=== PATIENT | male | born 1945 | race Caucasian/White ===

== ENCOUNTER → 2018-07-17 | Emergency (ER) | payer MEDICARE ==
[~2018-07-17] MED LIST: Sodium Chloride 0.9% 100 ML ONE; Thiamine HCl 200 MG/2 ML VIAL ONE; cefTRIAXone\\ROCEPHIN 2 GM VIAL ONE
[2018-07-17 19:13] LABS: #Basophils 0.1 thou/uL (0.0-0.2); #Eosinphils 0.1 thou/uL (0.0-0.7); #Lymphocytes 2.4 thou/uL (1.20-3.40); #Monocytes 0.5 thou/uL (0.11-0.59); #Neutrophils 2.5 thou/uL (1.40-6.50); %Basophils 0.9 % (0.0-1.0); %Eosinophils 1.8 % (0.0-10.0); %Lymphocytes 43.4 % (21.0-51.0); %Monocytes 8.8 % (0.0-10.0); Hemoglobin 14.9 g/dL (14.0-18.0); Mean Corpuscular HGB CONC 31.5 g/dL (32.0-36.0); Mean Corpuscular Hemoglobin 31.2 pg (27.0-31.0); Mean Corpuscular Volume 99.1 fL (78.0-98.0); Mean Platelet Volume 6.4 fL (7.4-10.4); Platelet Count 199 thou/uL (130-400); RBC Distribution Width 12.2 % (11.5-14.5); Red Blood Cell (RBC) Count 4.78 mill/uL (4.70-6.10); White Blood Cell (WBC) Count 5.5 thou/uL (4.8-10.8)
--- NOTE | 2018-07-17 19:15 | CT ---
CT OF THE BRAIN WITHOUT CONTRAST: 07/17/[address] was done emergently for evaluation of mental status changes. Comparison is made with a 06/22/12 study. There has been no significant interval change. The ventricles are normal in size with no shift. No in tracranial bleeding, mass, edema, or stroke was found. A minimal low density focus in the right front al lobe and right parietal lobe were present before and are completely unchanged. The calvarium appea rs normal. The visible paranasal sinuses and mastoid air cells are clear. IMPRESSION: No acute intracranial findings. Exam unchanged from 2013. POS: HOME
[2018-07-17 19:23] LABS: ALT (SGPT) 11 U/L (8-55); AST (SGOT) 14 U/L (5-34); Albumin 3.8 g/dL (3.4-4.8); Alcohol 173 mg/dL (Less than 10); Alkaline Phosphatase 69 U/L (40-150); Anion Gap 17 mmol/L (10-20); BUN (Urea Nitrogen) 14 mg/dL (8.4-25.7); Bilirubin, Total 0.3 mg/dL (0.2-1.2); Calc. Creatinine Clearance 0 mL/min (70-130); Calcium 8.9 mg/dL (7.8-10.44); Carbon Dioxide 24 mmol/L (23-31); Chloride 110 mmol/L (98-107); Estimated GFR-MDRD 70; Globulin 3.5 g/dL (2.4-3.5); Glucose 97 mg/dL (83-110); Lipase 43 U/L (8-78); Protein, Total 7.3 g/dL (5.8-8.1); Sodium 147 mmol/L (136-145)
--- NOTE | 2018-07-17 19:36 | RAD ---
PORTABLE CHEST: 07/17/18 An AP portable film at 1924 is compared with a 05/12/08 study. There has been little interval change. The heart size remains normal. There is no vascular congestion or edema. No lobar infiltrates or effusions are seen. The mediastinum is unremarkable in appearance. There is, however, deviation of the trachea to the left at the thoracic inlet. This was not present previously and would imply the possibility of a thyroid issue. I would recommend an elective thyroid ultrasound to be sure there is no mass or goiter here. IMPRESSION: 1. No acute cardiopulmonary process seen. 2. Deviation of trachea to the left at the thoracic inlet. An elective thyroid ultrasound is rec ommended. Code T POS: HOME
[2018-07-17 20:29] LABS: Clarity Cloudy (Clear)
[2018-07-17 20:30] LABS: Bilirubin Negative (Negative); Blood, Urine Moderate (Negative); Glucose, Urine (Dipstick) Negative (Negative); Leukocyte Small (Negative); Nitrite Positive (Negative); Protein, Urine (Dipstick) Trace mg/dL (Neg-Trace); Specific Gravity, Urine 1.021 (1.002-1.036); Urobilinogen 0.2 mg/dL (0.2-1.0); pH, Urine 5.5 (5.0-9.0)
[2018-07-17 20:31] LABS: Bacteria/HPF 1+ HPF (None Seen); Crystals/HPF None Seen HPF (Negative); Hyaline Casts/LPF NONE SEEN LPF (0-3 Hyaline); Other Casts/LPF None Seen LPF (0-3 Hyaline); Oval Fat Bodies/HPF None Seen HPF (None Seen); RBC/HPF 0-3 HPF (0-3); Renal Epithelial None Seen HPF (0-3); Sperm/HPF None Seen HPF (None Seen); Squamous Epithelial 0-3 HPF (0-3); Transitional Epithelial NONE SEEN HPF (0-3); Trichomonas/HPF None Seen HPF (None Seen); Yeast-All Forms None Seen HPF (None Seen)
== END ==
LOC: BURERS 18:24
DX: F10.129 Alcohol abuse with intoxication, unspecified (principal); N39.0 Urinary tract infection, site not specified; J06.9 Acute upper respiratory infection, unspecified; F17.220 Nicotine dependence, chewing tobacco, uncomplicated
CPT/HCPCS: 36415; 70450; 71045; 80053; 80307; 81003; 81015; 83605; 83690; 84484; 85025; 85379; 87040; 94640; 94760; 96361; 96365; 96375; J0696; J3411; J7050; J7620

== ENCOUNTER 2020-04-21 17:32 | Emergency (ER) | payer MEDICARE ==
[~2020-04-21 17:32] MED LIST changes: +Iopamidol 370 76% 100 ML VIAL ONE; -Sodium Chloride 0.9% 100 ML ONE; -Thiamine HCl 200 MG/2 ML VIAL ONE; -cefTRIAXone\\ROCEPHIN 2 GM VIAL ONE
[2020-04-21] MEDS ORDERED: Lorazepam 2 MG/ML VIAL ONE ×2 (17:54→19:58)
[2020-04-21] MEDS ORDERED: Thiamine HCl 200 MG/2 ML VIAL ONE (18:10)
[2020-04-21 18:11] LABS: #Basophils 0.1 thou/uL (0.0-0.2); #Lymphocytes 0.3 thou/uL (1.20-3.40); #Monocytes 0.3 thou/uL (0.11-0.59); #Neutrophils 7.1 thou/uL (1.40-6.50); %Basophils 0.7 % (0.0-1.0); %Eosinophils 0.1 % (0.0-10.0); %Lymphocytes 3.4 % (21.0-51.0); %Monocytes 4.4 % (0.0-10.0); %Neutrophils 91.5 % (42.0-75.0); Hemoglobin 14.9 g/dL (14.0-18.0); Mean Corpuscular HGB CONC 31.9 g/dL (32.0-36.0); Mean Corpuscular Hemoglobin 33.6 pg (27.0-31.0); Mean Platelet Volume 7.5 fL (7.4-10.4); Platelet Count 124 thou/uL (130-400); RBC Distribution Width 14.1 % (11.5-14.5); Red Blood Cell (RBC) Count 4.43 mill/uL (4.70-6.10); White Blood Cell (WBC) Count 7.7 thou/uL (4.8-10.8)
[2020-04-21 18:12] LABS: MDiff Complete? YES; Manual Diff?? NO
[2020-04-21 18:26] LABS: ALT (SGPT) 46 U/L (8-55); AST (SGOT) 45 U/L (5-34); Albumin 4.3 g/dL (3.4-4.8); Alkaline Phosphatase 109 U/L (40-110); Anion Gap 21 mmol/L (10-20); BUN (Urea Nitrogen) 9 mg/dL (8.4-25.7); Bilirubin, Total 2.2 mg/dL (0.2-1.2); Calc. Creatinine Clearance 0 mL/min (70-130); Calcium 8.8 mg/dL (7.8-10.44); Carbon Dioxide 25 mmol/L (23-31); Chloride 96 mmol/L (98-107); Globulin 3.9 g/dL (2.4-3.5); Glucose 169 mg/dL (83-110); Lipase 38 U/L (8-78); Magnesium 1.5 mg/dL (1.6-2.6); Potassium 3.5 mmol/L (3.5-5.1); Protein, Total 8.2 g/dL (5.8-8.1); Sodium 138 mmol/L (136-145)
[2020-04-21 18:27] LABS: Acetaminophen Less than 6.0 mcg/mL (10.0-30.0); Alcohol Less than 10 mg/dL (Less than 10); Salicylate Less than 8.0 mg/dL (15.0-30.0)
[2020-04-21 18:41] LABS: CKMB 2.1 ng/mL (0-6.6)
[2020-04-21] MEDS ORDERED: Magnesium 2 GM/50 ML BAG (IN WATER) ONE (18:57)
[2020-04-21 19:04] LABS: Bilirubin Small (Negative); Blood, Urine Large (Negative); Clarity Slightly Cloudy (Clear); Glucose, Urine (Dipstick) Negative (Negative); Ketone, Urine > or equal to 80 mg/dL (Negative); Leukocyte Negative (Negative); Nitrite Negative (Negative); Protein, Urine (Dipstick) > or equal to 300 mg/dL (Neg-Trace); Specific Gravity, Urine 1.025 (1.005-1.030); pH, Urine 7.5 (5.0-9.0)
[2020-04-21 19:14] LABS: Amphetamine Not Detected (NotDetected); Barbiturates Screen Not Detected (NotDetected); Benzodiazepine Screen Not Detected (NotDetected); Cocaine Metabolite Screen Not Detected (NotDetected); Methadone Not Detected (NotDetected); Methamphetamine Not Detected (NotDetected); Opiate Screen Not Detected (NotDetected); Oxycodone Screen Not Detected (NotDetected); Phencyclidine (PCP) Not Detected (NotDetected); THC/Cannabinoid Screen Not Detected (NotDetected); Tricyclic Screen Not Detected (NotDetected)
[2020-04-21 19:15] LABS: Medtox Control Line Valid? VALID (VALID)
[2020-04-21 19:21] LABS: RBC/HPF 21-50 HPF (0-3); Squamous Epithelial 0-3 HPF (0-3); WBC/HPF 0-3 HPF (0-3)
[2020-04-21 19:22] LABS: Transitional Epithelial 0-3 HPF (None Seen)
[2020-04-21] MEDS ORDERED: Multivit, Adult Inj 10 ML VIAL ONE (19:58)
[2020-04-21 20:41] LABS: Lactic Acid 2.4 mmol/L (0.5-2.2)
[2020-04-21] MEDS ORDERED: Piperacillin/Tazobactam 4.5 GM VIAL ONE (20:48)
--- NOTE | 2020-04-21 21:00 | RAD ---
PORTABLE CHEST: 04/21/20 An AP portable film at 1807 is compared with a 07/17/18 study. The heart is borderline in size. The vessels seem slightly more prominent than they were before, but there is not gross edema or pleural effusion. There might be a little atelectasis in the lung bases, but there were no major infiltrates. Elevation of the right hemidiaphragm is no different than it was previously. IMPRESSION: Equivocal slight vascular prominence. POS: HOME
--- NOTE | 2020-04-21 21:04 | CT ---
CT ANGIO OF THE CHEST 04/21/[address] of the chest was done using IV contrast in response to shortness of breath and an elevated D-dimer. There is moderate opacification of the pulmonary arterial system yielding a medium sensitivity study. There was no signs of clot in the larger and proximal medium-sized branches. As one moves distal to that point, the contrast is not seen well enough to rule in or rule out peripheral emboli. A question able defect in one of the vessels of the left upper lobe appears to be in a pulmonary vein and not an artery. There are no focal pulmonary infiltrates aside from some atelectasis. There was no sign of p neumonia. No pleural effusions were seen. Most of the liver is seen which shows diffuse fatty infiltration. The gallbladder is rather opaque. T he visible portions of the other upper abdominal organs was unremarkable. IMPRESSION: 1. Medium sensitivity studies showing no evidence of pulmonary embolism in the larger to proxima l medium sized branches. Cannot comment on more peripheral branches. 2. Some atelectasis in the lungs but no signs of pneumonia. 3. Diffuse fatty infiltration of the liver. Preliminary report called to Dr. Alva at 1954. POS: HOME
[2020-04-21 22:32] LABS: SARS-CoV-2 NAA Rapid Test Not Detected (NotDetected)
[2020-04-21 23:35] LABS: CKMB 2.4 ng/mL (0-6.6)
== END 2020-04-21 23:15 | disposition short-term general hospital (02) ==
LOC: BURERS 17:32
DX: F10.231 Alcohol dependence with withdrawal delirium (principal); E86.0 Dehydration; R77.8 Other specified abnormalities of plasma proteins; Z79.899 Other long term (current) drug therapy
CPT/HCPCS: 0240U; 36415; 71045; 71275; 80053; 80306; 80307; 81003; 81015; 82553; 83605; 83690; 83735; 83880; 84443; 84484; 85025; 85379; 87040; 93005; 94760; 96365; 96366; 96372; 96375; 96376; J2060; J2543; J3411; J3475; Q9967

== ENCOUNTER 2020-07-24 16:19 | Emergency (ER) | payer MEDICARE ==
[2020-07-24] MEDS ORDERED: Ondansetron PF 4 MG/2 ML Vial ONE (16:50)
[2020-07-24 17:20] LABS: #Basophils 0.1 thou/uL (0.0-0.2); #Lymphocytes 0.6 thou/uL (1.20-3.40); #Monocytes 0.3 thou/uL (0.11-0.59); #Neutrophils 4.1 thou/uL (1.40-6.50); %Basophils 1.1 % (0.0-1.0); %Eosinophils 0.1 % (0.0-10.0); %Lymphocytes 11.3 % (21.0-51.0); %Monocytes 5.8 % (0.0-10.0); %Neutrophils 81.7 % (42.0-75.0); Hemoglobin 15.6 g/dL (14.0-18.0); Mean Corpuscular HGB CONC 33.8 g/dL (32.0-36.0); Mean Corpuscular Hemoglobin 35.3 pg (27.0-31.0); Mean Platelet Volume 7.8 fL (7.4-10.4); Platelet Count 187 thou/uL (130-400); RBC Distribution Width 13.6 % (11.5-14.5); Red Blood Cell (RBC) Count 4.42 mill/uL (4.70-6.10)
[2020-07-24 17:40] LABS: ALT (SGPT) 29 U/L (8-55); AST (SGOT) 38 U/L (5-34); Albumin 4.2 g/dL (3.4-4.8); Alkaline Phosphatase 80 U/L (40-110); Anion Gap 29 mmol/L (10-20); BUN (Urea Nitrogen) 27 mg/dL (8.4-25.7); Bilirubin, Total 1.9 mg/dL (0.2-1.2); Calc. Creatinine Clearance 0 mL/min (70-130); Calcium 8.7 mg/dL (7.8-10.44); Carbon Dioxide 17 mmol/L (23-31); Chloride 94 mmol/L (98-107); Globulin 3.8 g/dL (2.4-3.5); Glucose 148 mg/dL (83-110); Lipase 74 U/L (8-78); Potassium 4.7 mmol/L (3.5-5.1); Sodium 135 mmol/L (136-145)
[2020-07-24 18:02] LABS: Anisocytosis SLIGHT = 6-15 cells (100X) (0-5/hpf); Bite Cells SLIGHT = 2-5 cells (100X) (0-1/hpf); MDiff Complete? YES; Macrocytosis SLIGHT = 6-15 cells (100X) (0-5/hpf); Platelet Morphology Comment Appears Adequate
== END 2020-07-24 19:01 | disposition home or self-care (01) ==
LOC: BURERS 16:19
DX: E86.0 Dehydration (principal); R11.2 Nausea with vomiting, unspecified; R63.0 Anorexia; R10.13 Epigastric pain; E78.5 Hyperlipidemia, unspecified; E78.00 Pure hypercholesterolemia, unspecified; I10 Essential (primary) hypertension; Z79.899 Other long term (current) drug therapy; Z79.82 Long term (current) use of aspirin; Z79.01 Long term (current) use of anticoagulants
CPT/HCPCS: 80053; 82150; 83690; 85025; 96374; J2405

== ENCOUNTER 2020-12-20 17:22 | Emergency (ER) | payer MEDICARE ==
[2020-12-20 18:27] LABS: ALT (SGPT) 43 U/L (8-55); AST (SGOT) 55 U/L (5-34); Albumin 4.2 g/dL (3.4-4.8); Alkaline Phosphatase 101 U/L (40-110); Anion Gap 24 mmol/L (10-20); BUN (Urea Nitrogen) 19 mg/dL (8.4-25.7); Bilirubin, Total 2.8 mg/dL (0.2-1.2); Calc. Creatinine Clearance 0 mL/min (70-130); Calcium 9.3 mg/dL (7.8-10.44); Carbon Dioxide 24 mmol/L (23-31); Chloride 95 mmol/L (98-107); Globulin 3.7 g/dL (2.4-3.5); Glucose 128 mg/dL (83-110); Lipase 56 U/L (8-78); Potassium 3.6 mmol/L (3.5-5.1); Protein, Total 7.9 g/dL (5.8-8.1); Sodium 139 mmol/L (136-145)
== END 2020-12-20 19:04 | disposition home or self-care (01) ==
LOC: BURERS 17:22
DX: S01.01XA Laceration without foreign body of scalp, initial encounter (principal); S01.412A Laceration without foreign body of left cheek and temporomandibular area, initial encounter; S01.112A Laceration without foreign body of left eyelid and periocular area, initial encounter; R00.0 Tachycardia, unspecified; E78.5 Hyperlipidemia, unspecified; E78.00 Pure hypercholesterolemia, unspecified; I10 Essential (primary) hypertension; Z79.82 Long term (current) use of aspirin; Z79.01 Long term (current) use of anticoagulants; Z79.899 Other long term (current) drug therapy; W22.8XXA Striking against or struck by other objects, initial encounter
CPT/HCPCS: 70450; 70486; 80053; 83690